=== PATIENT | female | born 1965 | race Caucasian/White ===

== ENCOUNTER 2017-11-26 05:46 | Day surgery (SDC) | payer OTHER ==
[~2017-11-26] VITALS: Ht 162.6 cm; Wt 108.6 kg
[2017-11-26] VITALS (9 sets, daily range): BP systolic 102–122; BP diastolic 64–78
--- NOTE | ~2017-11-26 | S ---
[facility] [place] [address] SURGICAL PATH RPT PROCEDURE Name: ASTRID HARELY Room #: DEP [facility] M.R.#: [id number] Admission: 11/26/17 Date of : 67 Discharge: 11/26/17 Report #: [id number] Path Case #: [id number] PATHOLOGY REPORT COLLECTION DATE: 11/26/2017 RECEIVED DATE: 11/27/2017 SUBMITTING PHYS: Dr. Sukhdev Ma OTHER PHYS: Dr. Essie Craig SPECIMEN(S) RECEIVED: A.Gallbladder * * * * * * * * * * * * FINAL DIAGNOSIS: Gallbladder, cholecystectomy: - Mild chronic cholecystitis. PATHOLOGIST: Shu Pastor M.D. REPORT ELECTRONICALLY SIGNED BY: Shu Pastor M.D. DATE/TIME: 11/30/2017 13:06 * * * * * * * * * * * * GROSS PATHOLOGY: Received in formalin labeled "Astrid Harley gallbladder," is a 7.1 x 3.1 x 2.7 cm, intact gallbladder with pink-correa serosal surfaces. Opening the gallbladder reveals a velvety, dark brown mucosa with mild, diffuse cholesterolosis, and an average wall thickness of 0.1 cm. Calculi are not present and no masses are noted grossly. Mail List Processor sections from the body and fundus are submitted along with the proximal margin in cassette A1. (CAA; 11/27/2017) CLINICAL HISTORY: Biliary colic INITIAL CPT CODE(S): A; 47123 Professional services performed by [facility] at [facility] [address], [place] [address] Technical services performed by [facility] at [address] [place] [id number]. [facility] [address] [place] [address] SURGICAL PATH RPT PROCEDURE Name: ASTRID HARLEY Room #: DEP [facility] Thong#: [id number] Admission: 11/26/17 Date of : 67 Discharge: 11/26/17 Report #: [id number] Path Case #: [id number] [address] PHONE: [phone] DIRECTOR: Steve Foreman M.D. * * * END OF REPORT * * *
--- NOTE | ~2017-11-26 | O ---
[facility] [place] [address] OPERATIVE REPORT Name: ALEX HARLEY Room #: DEP [facility]..#: [id number] Admission: 11/26/17 Attend Phys: Sukhdev Ma MD Discharge: 11/26/17 Date of : 67 Report #: [id number] THIS REPORT FOR: //name// CC: Essie Ma DATE OF SERVICE: 11/26/[address] Sukhdev Ma and Dr. Essie Craig. PREOPERATIVE DIAGNOSIS: Biliary dyskinesia. POSTOPERATIVE DIAGNOSIS: Biliary dyskinesia. PROCEDURE: Laparoscopic cholecystectomy with extensive laparoscopic lysis of adhesions doubling the operative time. SURGEON: Sukhdev Ma MD APPLICATION SUPPORT ANALYST: Esme Tena RN ANESTHESIA: General. DESCRIPTION OF PROCEDURE: The patient was brought to the operating room and placed on operative table in the supine position. Sequential compression devices were in place for DVT prophylaxis. She received an appropriate preoperative dose of antibiotics. The patient underwent a general endotracheal anesthesia and the abdomen was then prepped and draped in a sterile fashion. Skin and subcutaneous tissue around the umbilicus was infiltrated with 0.5% Marcaine. An infraumbilical transverse skin incision was then performed using #11 scalpel blade. Hemostasis obtained using electrocautery. Dissection was carried down through subcutaneous tissue, the fascia, which was identified, grasped between 2 Anderson clamps and incised with a curved Calderon scissors. Peritoneum was entered and a pursestring suture of 0 Vicryl was then placed in the fascia. A 12 mm disposable Ekta port was then inserted through the opening and held into place with the balloon port and the pursestring suture. Pneumoperitoneum was obtained to a level of 10-15 mmHg. Laparoscope was inserted through this port and exploration was performed. There were numerous adhesions around the upper midline, anterior abdominal wall as well as extending along the base of the liver and over to the right gutter. Two lateral 5 mm Surgiports were able to be inserted under direct visualization after infiltration with 0.5% Marcaine. Using the hook electrocautery, I was able to clear some of the adhesions from the midline to then allow the admittance of the upper midline 11 mm Surgiport after infiltration with 0.5% Marcaine under direct visualization. I then grasped the gallbladder and retracted it superiorly and [facility] [address] [place] [address] OPERATIVE REPORT Name: ALEX HARLEY Room #: DEP [facility] M.R.#: [id number] Admission: 11/26/17 Attend Phys: Sukhdev Ma MD Discharge: 11/26/17 Date of : 67 Report #: [id number] some of the adhesions around the gallbladder were dissected free. The medial segment of the right lobe was impinging upon the gallbladder. I lysed numerous adhesions around the right edge of the liver and inferior surface of the liver to try to get as much mobility as possible. I then inserted a fan retractor and was able to retract the medial portion of the liver medially for better visualization of the wall of the gallbladder. I was able to carefully dissect free the cystic duct. I was not able to identify the cystic artery and it was difficult to obtain adequate visualization near the neck of the gallbladder. I decided to then try taking the gallbladder down from the top down to the cystic duct and artery. Lysing these adhesions and during this mobilization doubled the operative time. I then started by incising the peritoneum overlying the gallbladder superiorly and taken the gallbladder down from superiorly to inferiorly using the hook electrocautery. When I got down near the neck of the gallbladder using the [place] dissector, I was then able to dissect free and identify the cystic artery. The cystic artery was then doubly clipped on each side and divided with the scissors. I was then able to carefully dissect free the cystic duct and I was able to successfully dissect it down to the cystic common bile duct junction, which was clearly identified. I then placed 3 clips on the patient's side and 2 clips on the gallbladder side and divided the cystic duct. The gallbladder was then brought out through the upper midline port and sent as specimen to pathology. Palpation of the gallbladder failed to reveal any palpable stones. Port was then returned to the abdomen. The area was then copiously irrigated with warm saline solution, which was suctioned free and hemostasis was checked and found to be intact. The ports were then all removed under direct visualization, hemostasis intact at each port site. Pneumoperitoneum was released and the periumbilical port was then also removed under direct visualization. Hemostasis intact at that port site as well. The periumbilical fascia was then closed using the 0 Vicryl pursestring suture. The upper midline fascia was then closed using a [id number] 0 Vicryl suture. The skin was then closed using interrupted vertical mattress 5-0 nylon sutures. The wounds dressed with Band-Aids. The patient was then awakened from the general anesthesia and taken to recovery room in good condition. Estimated blood loss was approximately 10 mL and the patient tolerated the procedure well. All sponge, lap and instrument counts correct x 2. <ELECTRONICALLY SIGNED> By: Sukhdev Ma MD 11/27/17 1514 [id number] Sukhdev Ma MD /nt
[~2017-11-26 05:46] MED LIST: ASPIR 8181 MG PO; LIPITOR 20 MG T20 M1 PO; PAXIL10 MG PO; PROZAC10 MG PO; SYNTHROID88 MCG PO; VITAMIN B-12500 MCG PO; VITAMIN D1000 UNI2 PO
[2017-11-26] MEDS ORDERED: NORCO 5-325 TA1 EACH PO (13:54)
== END 2017-11-26 21:00 | disposition home or self-care (01) ==
LOC: TBA 05:46 → OR 05:46 → 4E 16:40 → OR 21:00
DX: K82.8 Other specified diseases of gallbladder (principal); J45.909 Unspecified asthma, uncomplicated; K21.9 Gastro-esophageal reflux disease without esophagitis; F32.89 Other specified depressive episodes; F41.8 Other specified anxiety disorders; Z87.891 Personal history of nicotine dependence; Z87.442 Personal history of urinary calculi; Z98.890 Other specified postprocedural states; Z79.82 Long term (current) use of aspirin; Z79.899 Other long term (current) drug therapy; Z79.891 Long term (current) use of opiate analgesic
CPT/HCPCS: 50010; 50101; 50411; 50555; 50558; 51474; 51489; 51679; 52266; 53314; 55245; 56462; 56524; 56528; 62110; 62900; 70005